=== PATIENT | female | born 2000 | race Caucasian/White ===

== ENCOUNTER 2025-05-24 09:54 | Emergency (ER) | payer OTHER, SELFPAY ==
--- NOTE | ~2025-05-24 | XR_ITS ---
Examination: XR abdomen/kub 1V Clinical History: left flank pain-trace blood in urine R/O stone Comparison: None Technique: 2 view supine abdomen Findings: No nephroureteral calculi identified. Scattered colonic gas and stool. Small bowel loops poorly seen. Air-fluid levels not assessed on supine projections. No acute bony abnormality. IMPRESSION: 1. No nephroureteral calculi or other abnormality identified. Reviewed, dictated and finalized at location [facility]
[2025-05-24 10:00] VITALS: BP 139/96; PULSE 115; RESP 18; TEMP 36.9; O2SAT 99
--- NOTE | 2025-05-24 10:15 | ED.BACK ---
HPI - Back Pain/Injury General Chief Complaint: Back Pain/Injury Stated Complaint: Back Pain Time Seen by Provider: 05/24/25 10:00 Source: patient Mode of arrival: ambulatory Limitations: no limitations History of Present Illness HPI Narrative: Dina is a 24-year-old female patient presenting to the clinic today with complaints of acute left flank pain this started approximately 30 minutes prior to arrival. She rates her pain 8/10 currently. States that sharp and constant in the left mid flank. History of herniated disc in the past. No known injury. Denies any urinary symptoms. No history kidney stones in the past. States the pain is worse with movement. Denies any radiation of the pain. Related Data Home Medications ?Medication ?Instructions ?Recorded ?Confirmed ?Last Taken ?Type etonogestrel 0.12 mg-ethinyl vag ring vaginal .year 05/24/25 Unknown History estradiol 0.015 mg/24 hr vaginal ring lamotrigine 25 mg tablet 25 mg PO HS 05/24/25 05/24/25 Unknown History lumateperone 42 mg capsule 42 mg PO HS 05/24/25 05/24/25 Unknown History (Caplyta) sertraline 100 mg tablet 150 mg PO Q24H 05/24/25 05/24/25 Unknown History Allergies Allergy/AdvReac Type Severity Reaction Status Date / Time No Known Allergies Allergy Verified 05/24/25 10:03 Review of Systems Review of Systems: Pertinent positives per HPI. Patient denies any fever, chills, rash, headache, visual changes, dizziness, cough, runny nose, sore throat, shortness of breath, chest pain, palpitations, nausea, vomiting, diarrhea, constipation, abdominal pain, or any urinary issues. PMFSH Comments At the time of my signature, I reviewed and agree with the nursing past medical, surgical, social, and family history. There is no relevant family history pertinent to the patient complaint. Exam Narrative: General: Well-developed, well nourished, in no apparent distress Head: Normocephalic, atraumatic. Cardio: Regular rate and rhythm, s1 and s2 normal, no murmur appreciated. Resp: Clear to auscultation bilaterally, no rhonchi, rales, wheezing or rubs. Musculoskeletal: No deformity, tender to palpation over the left flank, pain worsens with twisting movement, grossly normal range of motion, muscle strength strong and equal in BLE. SLT negative, patellar reflexes 2/4 bilaterally, negative foot drop, normal gait and station Course Course Level of Care: Express Care Visit Vital Signs Vital signs: Vital Signs Temperature 36.9 C 05/24/25 10:00 Pulse Rate 115 H 05/24/25 10:00 Respiratory Rate 18 05/24/25 10:00 Blood Pressure 139/96 H 05/24/25 10:00 Pulse Oximetry 99 05/24/25 10:00 Oxygen Delivery Room Air 05/24/25 10:00 Temperature 36.9 C 05/24/25 10:00 Pulse Rate 115 H 05/24/25 10:00 Respiratory Rate 18 05/24/25 10:00 Blood Pressure 139/96 H 05/24/25 10:00 Pulse Oximetry 99 05/24/25 10:00 Oxygen Delivery Room Air 05/24/25 10:00 MDM MDM Narrative Medical decision making narrative: At the time of visit patient is resting comfortably on the exam table. Patient appears to be nontoxic. Complaints of acute left flank pain this started approximately 30 minutes prior to arrival. She rates her pain 8/10 currently. States that sharp and constant in the left mid flank. History of herniated disc in the past. No known injury. Denies any urinary symptoms. No history kidney stones in the past. States the pain is worse with movement. Denies any radiation of the pain. On exam patient has tender to palpation over the left flank, left CVAT tenderness, pain worsens with twisting movement, grossly normal range of motion, no bruising or swelling noted over this area. Offered Toradol injection for pain and she declined at this time. Orders for urine dip, bedside , abdomen x-ray KUB was placed Labs: Urinalysis shows trace of blood, 1+ protein, and 1+ bili. Bedside test was negative. Diagnostics: KUB x-ray was performed to rule out kidney stones-shows no acute pathology/stone Plan: I suspect patient has left flank pain likely muscular. Prescription for naproxen and baclofen was sent to the pharmacy. Supportive measures were discussed with the patient and they voiced understanding discharge instructions and agrees to treatment plan. Return precautions reviewed Differential Diagnosis Differential Diagnosis: Differential diagnostic considerations for back pain include herniated disc, sciatica, abscess, strain/sprain, discitis, myelitis, fracture, hematoma, cauda equina, osteomyelitis, metastatic and/or primary malignancy, renal colic, pyelonephritis, AAA. Lab Data Labs: Lab Results 05/24/25 05/24/25 Range/Units 10:35 10:36 POC Urine Color Dark POC Urine Clarity Clear POC Urine pH 6.0 POC Ur Specif [place] 1.030 POC Urine Protein 1+ (Negative) POC Ur Glucose (UA) Negative (Negative) POC Urine Ketones Negative (Negative) POC Urine Blood Trace (Negative) POC Urine Nitrite Negative (Negative) POC Urine Bilirubin 1+ (Negative) POC Urine Urobilinogen 0.2 POC U Leukocyte Esteras Negative (Negative) POC Urine HCG, Qual Negative (Negative) Imaging Data Radiologist's impression: ITS Impressions Abdomen X-Ray 05/24/25 11:00 IMPRESSION: 1. No nephroureteral calculi or other abnormality identified. Discharge Plan Discharge Clinical Impression: Acute left flank pain Patient Disposition: Home Condition: Stable Instructions: Antibiotic Form, Flank Pain (ED) Additional Instructions: Urine came back positive for 1+ protein and trace of blood. We will send urine for culture. Bedside test was negative. X-ray of abdomen is negative for any acute abnormalities or stones. Take any prescription medication only as prescribed-naproxen and baclofen Be mindful of sedation precautions given to you if taking a muscle relaxer. May use heat or ice to the affected area Consider massage or chiropractor adjustment if this was discussed with provider May use blue emu, lidocaine patches, or asper cream to affected area- do not apply heat or ice directly over cream- can cause burn. Complete appropriate back stretching exercises. Follow up with your PCP in 3-5 days if symptom persist. Patient Language: Georgian Prescriptions: New naproxen 500 mg tablet 500 mg PO BID PRN (Reason: pain) 7 Days Qty: 14 0RF baclofen 10 mg tablet 10 mg PO TID PRN (Reason: muscle spasm) 7 Days Qty: 21 0RF No Action etonogestrel-ethinyl estradiol 0.12-0.015 mg/24 hr ring VAGINAL .year lamotrigine 25 mg tablet 25 mg PO HS Caplyta 42 mg capsule 42 mg PO HS sertraline 100 mg tablet 150 mg PO Q24H Follow-up/Referrals: PHYSICIAN,HVAC FIELD SERVICE TECHNICIAN [Primary Care Provider, Internal Medicine] Time of Disposition: 11:12 Quality [facility] Nursing Documentation ED NIHSS nursing documentation: reviewed/agree
[2025-05-24 10:38] LABS: EDUAAPPEAR Clear; EDUABILI 1+ (Negative); EDUABLOOD Trace (Negative); EDUACOLOR1 Dark; EDUAGLUCOSE Negative (Negative); EDUAKETONE Negative (Negative); EDUALEUKO Negative (Negative); EDUANITRATE Negative (Negative); EDUAPH 6.0; EDUAPROTEIN 1+ (Negative); EDUASPGRAVITY 1.030; EDUAUROBILI 0.2
[2025-05-24 10:38] LABS: BEDSIDEPREGUCG Negative (Negative)
== END 2025-05-24 11:19 | disposition home or self-care (01) ==
PROVIDERS: Emergency Provider Nurse Practitioner Family
DX: R10.9 Unspecified abdominal pain (principal)
CPT/HCPCS: 74018; 81003; 81025; 99213; G0463